=== PATIENT | female | born 1980 | race Caucasian/White ===

== ENCOUNTER 2023-04-26 12:43 | Emergency (ER) | payer MEDICAID ==
[~2023-04-26] VITALS: Ht 172.7 cm; Wt 61.6 kg
[2023-04-26 13:04] VITALS: TEMP 97.4
[2023-04-26 13:48] LABS: BASOPHILS # (AUTO) 0.1 X10'3 (0-0.2); BASOPHILS % (AUTO) 1.6 % (0-1); EOSINOPHILS % (AUTO) 0.6 % (0-6); HEMATOCRIT 39.5 % (35.0-45.0); HEMOGLOBIN 13.3 g/dl (12.0-16.0); LYMPHOCYTES # (AUTO) 1.5 X10'3 (1.1-4.8); LYMPHOCYTES % (AUTO) 37.1 % (21-51); MEAN CORPUSCULAR HEMOGLOBIN 35.9 PG (27.0-31.0); MEAN CORPUSCULAR HGB CONC 33.7 g/dL (33.0-36.5); MEAN CORPUSCULAR VOLUME 106.5 FL (78-98); MEAN PLATELET VOLUME 6.7 FL (7.4-10.4); MONOCYTES # (AUTO) 0.5 X10'3 (0-0.9); MONOCYTES % (AUTO) 11.7 % (2-12); PLATELET COUNT 190 X10'3 (140-440); RED BLOOD COUNT 3.71 X10'6 (4.20-5.60); RED CELL DISTRIBUTION WIDTH 13.5 % (11.5-14.5)
[2023-04-26 14:09] LABS: ALANINE AMINOTRANSFERASE 54 U/L (12-78); ALBUMIN 4.3 G/DL (3.4-5.0); ALBUMIN/GLOBULIN RATIO 1.2 (1.1-1.5); ALKALINE PHOSPHATASE 70 IU/L (46-116); ANION GAP 10 (8-16); ASPARTATE AMINO TRANSFERASE 110 U/L (10-37); BILIRUBIN,TOTAL 0.4 MG/DL (0.1-1.0); BLOOD UREA NITROGEN 6 MG/DL (7-18); BUN/CREATININE RATIO 7.3 (10.0-20.0); CALCIUM 8.7 MG/DL (8.5-10.1); CHLORIDE 102 MMOL/L (99-107); CREATININE 0.82 MG/DL (0.40-0.90); GLUCOSE 96 MG/DL (70-104); LIPASE 358 U/L (73-393); POTASSIUM 3.6 MMOL/L (3.5-5.1); SODIUM 140 MMOL/L (135-145); TOTAL PROTEIN 7.8 G/DL (6.4-8.2); eCRCL 88 ML/MIN; eGFR 77 ML/MIN
[2023-04-26 14:43] LABS: BILIRUBIN,URINE NEGATIVE (Neg); CLARITY,URINE CLEAR (Clear); COLOR,URINE STRAW (Yellow); GLUCOSE, URINE NEGATIVE (Neg); KETONES,URINE NEGATIVE (Neg); LEUKOCYTE ESTERASE ,URINE NEGATIVE (Neg); NITRITES, URINE NEGATIVE (Neg); OCCULT BLOOD,URINE NEGATIVE (Neg); PH,URINE 6.5 (4.8-8.0); PROTEIN,URINE NEGATIVE (Neg); URINE HCG NEGATIVE (NEG); UROBILINOGEN,URINE 0.2 E.U/dL (0.2-1.0)
[2023-04-26 14:44] LABS: UA COLLECTION TYPE CLN CATCH MIDSTREAM
[2023-04-26 16:19] VITALS: BP 125/94; PULSE 72; RESP 18; O2SAT 96
== END 2023-04-26 16:39 | disposition home or self-care (01) ==
LOC: ER 12:44
DX: M54.50 Low back pain, unspecified (principal); Z88.5 Allergy status to narcotic agent; Z72.89 Other problems related to lifestyle
CPT/HCPCS: 36415; 80053; 81003; 81025; 83690; 85025; 99284

== ENCOUNTER 2023-05-07 18:53 | Inpatient (IN) | payer MEDICAID ==
[~2023-05-07] VITALS: Ht 172.7 cm; Wt 56.8 kg
[2023-05-07] MEDS ORDERED: ringers solution, lacted 1,000 ML IV ONE (19:05)
[2023-05-07] MEDS ORDERED: magnesium 2GM in 50ml NS 50 ML IV ONE (19:05)
[2023-05-07] MEDS ORDERED: normal saline 1000ML IV soln IVB ONE (19:05)
[2023-05-07] MEDS ORDERED: NO HOME MEDS (19:06)
[2023-05-07 19:30] LABS: BASOPHILS # (AUTO) 0.1 X10'3 (0-0.2); BASOPHILS % (AUTO) 1.1 % (0-1); EOSINOPHILS % (AUTO) 0.4 % (0-6); HEMATOCRIT 42.2 % (35.0-45.0); HEMOGLOBIN 14.1 g/dl (12.0-16.0); LYMPHOCYTES # (AUTO) 1.7 X10'3 (1.1-4.8); LYMPHOCYTES % (AUTO) 30.1 % (21-51); MEAN CORPUSCULAR HEMOGLOBIN 35.1 PG (27.0-31.0); MEAN CORPUSCULAR HGB CONC 33.4 g/dL (33.0-36.5); MEAN PLATELET VOLUME 7.4 FL (7.4-10.4); MONOCYTES # (AUTO) 0.5 X10'3 (0-0.9); MONOCYTES % (AUTO) 8.5 % (2-12); NEUTROPHILS # (AUTO) 3.3 X10'3 (1.8-7.7); NEUTROPHILS % (AUTO) 59.9 % (42-75); PLATELET COUNT 171 X10'3 (140-440); RED BLOOD COUNT 4.01 X10'6 (4.20-5.60); RED CELL DISTRIBUTION WIDTH 13.2 % (11.5-14.5); WHITE BLOOD COUNT 5.5 X10'3 (4.5-11.0)
[2023-05-07 19:36] LABS: URINE HCG NEGATIVE (NEG)
[2023-05-07 19:40] LABS: BILIRUBIN,URINE NEGATIVE (Neg); CLARITY,URINE SLIGHTLY CLOUDY (Clear); GLUCOSE, URINE 100 mg/dl (Neg); KETONES,URINE TRACE mg/dl (Neg); LEUKOCYTE ESTERASE ,URINE LARGE (Neg); NITRITES, URINE POSITIVE (Neg); OCCULT BLOOD,URINE TRACE-INTACT (Neg); PH,URINE 6.5 (4.8-8.0); PROTEIN,URINE NEGATIVE (Neg)
[2023-05-07 19:45] LABS: ALANINE AMINOTRANSFERASE 43 U/L (12-78); ALBUMIN 4.2 G/DL (3.4-5.0); ALBUMIN/GLOBULIN RATIO 1.1 (1.1-1.5); ALKALINE PHOSPHATASE 73 IU/L (46-116); ANION GAP 12 (8-16); ASPARTATE AMINO TRANSFERASE 94 U/L (10-37); BILIRUBIN,TOTAL 0.8 MG/DL (0.1-1.0); BLOOD UREA NITROGEN 7 MG/DL (7-18); BUN/CREATININE RATIO 9.2 (10.0-20.0); CALCIUM 8.7 MG/DL (8.5-10.1); CHLORIDE 100 MMOL/L (99-107); CREATININE 0.76 MG/DL (0.40-0.90); GLUCOSE 99 MG/DL (70-104); POTASSIUM 3.7 MMOL/L (3.5-5.1); SODIUM 137 MMOL/L (135-145); TOTAL CARBON DIOXIDE 24.8 MMOL/L (24-32); TOTAL PROTEIN 7.9 G/DL (6.4-8.2); eCRCL 87 ML/MIN; eGFR 84 ML/MIN
[2023-05-07 19:45] LABS: COLOR,URINE AMBER (Yellow); UA COLLECTION TYPE CLN CATCH MIDSTREAM
[2023-05-07 19:49] LABS: BACTERIA,URINE 4+ /HPF (Neg); MUCUS STRANDS FEW /LPF (Neg); SQUAMOUS EPITHELIAL CELL,UR FEW /LPF (FEW); TRANSITIONAL EPI CELLS,URINE FEW /HPF; WBC,URINE 20-30 /HPF (0-4)
[2023-05-07 19:55] LABS: CKMB RELATIVE INDEX 0.4 RATIO (0-2.5); CREATINE KINASE 166 U/L (26-192); CREATINE KINASE MB 0.7 ng/ml (0.3-3.6); ETHANOL 266 MG/DL (<10); LIPASE 251 U/L (73-393)
[2023-05-07 19:57] LABS: URINE AMPHETAMINE SCREEN NEGATIVE (Neg); URINE BARBITUATE SCREEN NEGATIVE (Neg); URINE BENZODIAZEPINES SCREEN NEGATIVE (Neg); URINE CANNABINOID SCREEN NEGATIVE (Neg); URINE COCAINE SCREEN NEGATIVE (Neg); URINE METHADONE SCREEN NEGATIVE (Neg); URINE OPIATE SCREEN NEGATIVE (Neg); URINE PHENCYCLIDINE SCREEN NEGATIVE (Neg)
[2023-05-07] MEDS ORDERED: CefTRIAXone/D5W-Rocephin 1gm 50 ML IV ONE (20:10)
[2023-05-07] MEDS ORDERED: CefTRIAXone 2gm/D5W 50ml BAG 50 ML IV ONE (22:00)
--- NOTE | 2023-05-07 22:17 | NUR ---
per dr gallegos, 2gm rocephin was ordered in error and only give 1gm rocephin. 1gm given.
[2023-05-07] MEDS ORDERED: haloperidol 5mg tablet PO PRN (22:20)
[2023-05-07] MEDS ORDERED: magnesium 2GM in 50ml NS 50 ML IV PRN (22:20)
[2023-05-07] MEDS ORDERED: ondansetron/PF 4mg/2ml inj IV PRN (22:20)
[2023-05-07] MEDS ORDERED: haloperidol lactate 5mg/ml inj IM PRN (22:20)
[2023-05-07] MEDS ORDERED: mag hydrox/Alum hydrox/simeth 30ml oral suspension PO PRN (22:20)
[2023-05-07] MEDS ORDERED: magnesium 4gm in 100ml NS 100 ML IV PRN (22:20)
[2023-05-07] MEDS ORDERED: potassium Cl 20 mEq SR tablet PO PRN (22:20)
[2023-05-07] MEDS ORDERED: acetaminophen 325mg tablet PO PRN ×2 (22:20)
[2023-05-07] MEDS: normal saline 1000ml 1,000 ML IV SCH (22:20)
[2023-05-07] MEDS ORDERED: magnesium Cl slow-release 64mg tablet PO PRN (22:20)
[2023-05-07] MEDS ORDERED: potassium Cl 40MEQ/1/2NS 520ml 520 ML IV PRN (22:20)
--- NOTE | 2023-05-07 22:30 | NUR ---
Patient in room [facility] 4014. I have received report from BILLIE Waller RN and had the opportunity to ask questions and assume patient care.
--- NOTE | 2023-05-07 22:45 | NUR ---
pt brought up to room 4014B via wheelchair, accompanied by and friend. oriented pt to room and call light with verbal understanding.
[2023-05-07 23:00] VITALS: BP 127/90; PULSE 105; RESP 16; TEMP 97.8; O2SAT 96
[2023-05-07] MEDS ORDERED: traMADol 50MG tablet PO PRN (23:50)
[2023-05-07] MEDS: LORazepam 1 MG tablet PO PRN (23:59)
[2023-05-08] MEDS: ciprofloxacin lact 400MG/200ML 200 ML IV SCH ×3 (01:09→18:58)
[2023-05-08] MEDS: LORazepam 1 MG tablet PO PRN ×2 (04:14→06:10)
[2023-05-08 06:30] LABS: EOSINOPHILS % (AUTO) 0.7 % (0-6); HEMATOCRIT 37.8 % (35.0-45.0); HEMOGLOBIN 12.8 g/dl (12.0-16.0); LYMPHOCYTES # (AUTO) 1.6 X10'3 (1.1-4.8); LYMPHOCYTES % (AUTO) 32.5 % (21-51); MEAN CORPUSCULAR HEMOGLOBIN 35.7 PG (27.0-31.0); MEAN CORPUSCULAR HGB CONC 33.9 g/dL (33.0-36.5); MEAN CORPUSCULAR VOLUME 105.3 FL (78-98); MEAN PLATELET VOLUME 7.4 FL (7.4-10.4); MONOCYTES # (AUTO) 0.5 X10'3 (0-0.9); MONOCYTES % (AUTO) 9.8 % (2-12); NEUTROPHILS # (AUTO) 2.8 X10'3 (1.8-7.7); PLATELET COUNT 133 X10'3 (140-440); RED BLOOD COUNT 3.59 X10'6 (4.20-5.60); RED CELL DISTRIBUTION WIDTH 12.9 % (11.5-14.5)
--- NOTE | 2023-05-08 06:31 | NUR ---
Problems reprioritized. Patient report given, questions answered & plan of care reviewed with MINA Mehta.
[2023-05-08 06:45] LABS: ALANINE AMINOTRANSFERASE 38 U/L (12-78); ALBUMIN 3.5 G/DL (3.4-5.0); ALKALINE PHOSPHATASE 65 IU/L (46-116); ANION GAP 7 (8-16); ASPARTATE AMINO TRANSFERASE 86 U/L (10-37); BILIRUBIN,TOTAL 0.8 MG/DL (0.1-1.0); BLOOD UREA NITROGEN 5 MG/DL (7-18); BUN/CREATININE RATIO 6.8 (10.0-20.0); CALCIUM 7.9 MG/DL (8.5-10.1); CHLORIDE 103 MMOL/L (99-107); CREATININE 0.73 MG/DL (0.40-0.90); GLUCOSE 104 MG/DL (70-104); LIPASE 368 U/L (73-393); MAGNESIUM 2.1 MG/DL (1.5-2.4); PHOSPHORUS 2.9 MG/DL (2.3-4.5); POTASSIUM 3.4 MMOL/L (3.5-5.1); SODIUM 138 MMOL/L (135-145); TOTAL CARBON DIOXIDE 27.8 MMOL/L (24-32); TOTAL PROTEIN 6.9 G/DL (6.4-8.2); eCRCL 91 ML/MIN; eGFR 88 ML/MIN
--- NOTE | 2023-05-08 06:54 | NUR ---
PAGER ID: [phone] MESSAGE: Janine Montaño [phone] Re: Mariah [phone] please call re withdrawls Thank YOu
[2023-05-08 06:55] VITALS: BP 115/71; PULSE 100; RESP 24; O2SAT 98
[2023-05-08 09:30] VITALS: RESP 16
[2023-05-08] MEDS: nicotine 14mg patch - 24hr TD SCH (09:58)
[2023-05-08] MEDS: thiamine 100mg/ml 2ml inj. IV SCH ×3 (09:58→20:51)
[2023-05-08] MEDS: folic acid 1mg/0.2ml inj IV SCH (09:59)
[2023-05-08] MEDS: LORazepam 2 mg/ml vial IV PRN ×5 (09:59→21:12)
[2023-05-08 10:00] VITALS: BP 121/73; PULSE 90; RESP 18; TEMP 97.5; O2SAT 97
--- NOTE | 2023-05-08 12:20 | NUR ---
L/w for substance abuse navigator to come and see patient on voicemail.
--- NOTE | 2023-05-08 13:19 | NUR ---
Received order for consult. Met with patient in regards to alcohol use and to see if patient was interested in resources for treatment options. Patient is interested in both in and out patient services. I talked to patient about Naltrexone and she has some at home that she has not tried yet. I discussed with patient the importance of getting a sponsor. I gave patient a list of facilities for inpatient and outpatient rehab, a card for [facility] and my card to call me with any questions.
--- NOTE | 2023-05-08 15:23 | NUR ---
Malnutrition consult: Pt reports 35 lb wt loss per consult. Attempted visit with pt at bedside though pt sleeping per family. RN also confirmed that pt had been sleeping. Current wt is 56.82 kg though not scaled and pt recently in ED with a scaled wt of 61.6 kg 04/26, current wt likely not accurate. Most recent scaled wt hx in EMR is 55 kg 03/18/11. Per ED report pt appears well developed well nourished. Per verbal d/w RN pt with no visible signs of muscle or fat wasting. Pending documentation of PO intake on clear liquid diet though RN confirmed pt ate gelatin and broth. Pt with no documented edema. Pt currently lacks a minimum of two criteria for malnutrition though at a high risk d/t EtOH use. Pt receiving routine Thiamine and Folic acid. D/w RN recommendation for routine MVI as well. Will continue to follow and monitor s/s of malnutrition. Addendum: 05/08/23 at [address] Amended: Links added.
[2023-05-08] MEDS: normal saline 1000ml 1,000 ML IV SCH (15:59)
[2023-05-08] MEDS: potassium Cl 20 mEq SR tablet PO PRN ×2 (17:28→22:46)
[2023-05-08 18:00] VITALS: BP 118/83; PULSE 103; RESP 16; TEMP 98.1; O2SAT 96
--- NOTE | 2023-05-08 19:03 | NUR ---
Problems reprioritized. Patient report given, questions answered & plan of care reviewed with Shukri OROZCO.
[2023-05-08] MEDS ORDERED: enoxaparin 40mg/0.4ml syringe SQ SCH (20:00)
[2023-05-09] MEDS: normal saline 1000ml 1,000 ML IV SCH (02:56)
[2023-05-09] MEDS: LORazepam 2 mg/ml vial IV PRN (02:59)
[2023-05-09] MEDS: potassium Cl 20 mEq SR tablet PO PRN (02:59)
--- NOTE | 2023-05-09 05:45 | NUR ---
I agree with PNEUMATIC TUBE REPAIRER physical assessment
[2023-05-09 06:00] VITALS: BP 122/93; PULSE 98; RESP 17; TEMP 98.3; O2SAT 96
--- NOTE | 2023-05-09 06:13 | NUR ---
I have received report from ERNESTO Forbes and had the opportunity to ask questions and assume patient care. No distress at this time.
--- NOTE | 2023-05-09 06:42 | NUR ---
Problems reprioritized. Patient report given, questions answered & plan of care reviewed with Lacy OROZCO.
[2023-05-09] MEDS: nicotine 14mg patch - 24hr TD SCH (07:48)
[2023-05-09] MEDS: LORazepam 1 MG tablet PO PRN (07:49)
[2023-05-09 08:00] VITALS: RESP 16; O2SAT 97
[2023-05-09] MEDS ORDERED: multivitamins, therapeutics tablet PO SCH (08:00)
[2023-05-09 08:13] LABS: BASOPHILS # (AUTO) 0.1 X10'3 (0-0.2); EOSINOPHILS # (AUTO) 0.1 X10'3 (0-0.9); HEMATOCRIT 36.3 % (35.0-45.0); HEMOGLOBIN 12.1 g/dl (12.0-16.0); LYMPHOCYTES # (AUTO) 1.3 X10'3 (1.1-4.8); LYMPHOCYTES % (AUTO) 23.7 % (21-51); MEAN CORPUSCULAR HEMOGLOBIN 35.6 PG (27.0-31.0); MEAN CORPUSCULAR HGB CONC 33.3 g/dL (33.0-36.5); MEAN CORPUSCULAR VOLUME 106.8 FL (78-98); MEAN PLATELET VOLUME 8.2 FL (7.4-10.4); MONOCYTES # (AUTO) 0.5 X10'3 (0-0.9); MONOCYTES % (AUTO) 9.8 % (2-12); NEUTROPHILS # (AUTO) 3.4 X10'3 (1.8-7.7); NEUTROPHILS % (AUTO) 63.5 % (42-75); PLATELET COUNT 121 X10'3 (140-440); RED CELL DISTRIBUTION WIDTH 13.1 % (11.5-14.5); WHITE BLOOD COUNT 5.3 X10'3 (4.5-11.0)
[2023-05-09] MEDS: folic acid 1mg/0.2ml inj IV SCH (08:44)
[2023-05-09] MEDS: ciprofloxacin lact 400MG/200ML 200 ML IV SCH (08:44)
[2023-05-09] MEDS: thiamine 100mg/ml 2ml inj. IV SCH ×2 (08:44→13:12)
[2023-05-09 08:49] LABS: ALANINE AMINOTRANSFERASE 35 U/L (12-78); ALBUMIN 3.4 G/DL (3.4-5.0); ALBUMIN/GLOBULIN RATIO 1.1 (1.1-1.5); ALKALINE PHOSPHATASE 62 IU/L (46-116); ANION GAP 7 (8-16); ASPARTATE AMINO TRANSFERASE 57 U/L (10-37); BILIRUBIN,TOTAL 1.3 MG/DL (0.1-1.0); BLOOD UREA NITROGEN 3 MG/DL (7-18); BUN/CREATININE RATIO 4.4 (10.0-20.0); CALCIUM 8.3 MG/DL (8.5-10.1); CHLORIDE 104 MMOL/L (99-107); CREATININE 0.68 MG/DL (0.40-0.90); GLUCOSE 101 MG/DL (70-104); LIPASE 309 U/L (73-393); PHOSPHORUS 2.6 MG/DL (2.3-4.5); POTASSIUM 3.8 MMOL/L (3.5-5.1); SODIUM 136 MMOL/L (135-145); TOTAL CARBON DIOXIDE 24.8 MMOL/L (24-32); TOTAL PROTEIN 6.5 G/DL (6.4-8.2); eCRCL 98 ML/MIN; eGFR > 90 ML/MIN
[2023-05-09 10:00] VITALS: BP 114/74; PULSE 83; RESP 19; TEMP 97.6; O2SAT 97
[2023-05-09] MEDS ORDERED: NALT50TA PO (12:44)
[2023-05-09] MEDS ORDERED: NICO-631 TD (12:44)
[2023-05-09] MEDS ORDERED: FOLI1TAB27 PO (12:44)
[2023-05-09] MEDS ORDERED: THIA100T66 PO (12:44)
[2023-05-09] MEDS ORDERED: LORA-269 PO (12:44)
[2023-05-09] MEDS ORDERED: MULT-25 PO (12:44)
[2023-05-09] MEDS ORDERED: LEVO-65 PO (12:44)
--- NOTE | 2023-05-09 13:39 | NUR ---
Patient discharged w/ no distress. All paperwork signed and instructions went over w/ patient. IV taken out from the right arm: cannula intact. Accompanied by her spouse for transportation and educational handouts to quite smoking/ drinking given to pt.
--- NOTE | 2023-05-09 14:29 | NUR ---
INDUSTRIAL REFRIGERATION MECHANIC documentation: I have reviewed and agree with all interventions, assessments performed and documented by Lacy Gardner LVN .
== END 2023-05-09 13:30 | disposition home or self-care (01) | DRG 463 ==
LOC: ER 18:54 → ED HOLD 22:25 → EDBEDREQ 23:23 → ORTHO 4S 23:50
PROVIDERS: ADMIT Internal Medicine; ATTEND Family Medicine
DX: N12 Tubulo-interstitial nephritis, not specified as acute or chronic (principal); K76.0 Fatty (change of) liver, not elsewhere classified; B96.89 Other specified bacterial agents as the cause of diseases classified elsewhere; E87.6 Hypokalemia; F10.229 Alcohol dependence with intoxication, unspecified; F17.290 Nicotine dependence, other tobacco product, uncomplicated; F10.239 Alcohol dependence with withdrawal, unspecified; Y90.8 Blood alcohol level of 240 mg/100 ml or more; Z88.5 Allergy status to narcotic agent
CPT/HCPCS: 36415; 76700; 76856; 80053; 80305; 80320; 81001; 81025; 82550; 82553; 82948; 83690; 83735; 83874; 84100; 85025; 87040; 87077; 87081; 87088; 87186; 93005; 93976; 96365; 96367; 99285; G0378; J0696; J0744; J2060; J2405; J3411; J3475; J3490; J7030; J7120

== ENCOUNTER 2023-08-14 18:32 | Emergency (ER) | payer MEDICAID ==
[~2023-08-14] VITALS: Ht 175.3 cm; Wt 59.1 kg
[~2023-08-14 18:32] MED LIST: FOLI1TAB27 PO; LORA-269 PO; MULT-25 PO; NALT50TA PO; NICO-631 TD; THIA100T66 PO
[2023-08-14] MEDS ORDERED: ketorolac tromethamine 15mg/ml inj. IV ONE (19:50)
[2023-08-14 20:11] LABS: URINE HCG NEGATIVE (NEG)
[2023-08-14 20:16] LABS: BILIRUBIN,URINE NEGATIVE (Neg); CLARITY,URINE CLOUDY (Clear); COLOR,URINE STRAW (Yellow); GLUCOSE, URINE NEGATIVE (Neg); KETONES,URINE NEGATIVE (Neg); LEUKOCYTE ESTERASE ,URINE SMALL (Neg); NITRITES, URINE NEGATIVE (Neg); OCCULT BLOOD,URINE NEGATIVE (Neg); PH,URINE 6.5 (4.8-8.0); PROTEIN,URINE NEGATIVE (Neg); UROBILINOGEN,URINE 0.2 E.U/dL (0.2-1.0)
[2023-08-14] MEDS ORDERED: ondansetron/PF 4mg/2ml inj IV ONE (20:20)
[2023-08-14 20:30] LABS: UA COLLECTION TYPE CLN CATCH MIDSTREAM
[2023-08-14 20:31] LABS: ALANINE AMINOTRANSFERASE 34 U/L (12-78); ALBUMIN 4.2 G/DL (3.4-5.0); ALBUMIN/GLOBULIN RATIO 1.1 (1.1-1.5); ALKALINE PHOSPHATASE 70 IU/L (46-116); ANION GAP 10 (8-16); ASPARTATE AMINO TRANSFERASE 71 U/L (10-37); BILIRUBIN,TOTAL 0.9 MG/DL (0.1-1.0); BLOOD UREA NITROGEN 7 MG/DL (7-18); BUN/CREATININE RATIO 10.9 (10.0-20.0); CALCIUM 8.7 MG/DL (8.5-10.1); CHLORIDE 100 MMOL/L (99-107); CREATININE 0.64 MG/DL (0.40-0.90); GLUCOSE 93 MG/DL (70-104); LIPASE 85 U/L (16-77); POTASSIUM 3.9 MMOL/L (3.5-5.1); SODIUM 135 MMOL/L (135-145); TOTAL CARBON DIOXIDE 25.1 MMOL/L (24-32); eCRCL 108 ML/MIN; eGFR > 90 ML/MIN
[2023-08-14 20:31] LABS: BACTERIA,URINE 4+ /HPF (Neg); MUCUS STRANDS NONE SEEN /LPF (Neg); SQUAMOUS EPITHELIAL CELL,UR MANY /LPF (FEW)
[2023-08-14 20:32] LABS: BASOPHILS # (AUTO) 0.1 X10'3 (0-0.2); BASOPHILS % (AUTO) 1.4 % (0-1); EOSINOPHILS % (AUTO) 0.1 % (0-6); HEMATOCRIT 40.7 % (35.0-45.0); HEMOGLOBIN 13.6 g/dl (12.0-16.0); LYMPHOCYTES # (AUTO) 1.5 X10'3 (1.1-4.8); LYMPHOCYTES % (AUTO) 33.6 % (21-51); MEAN CORPUSCULAR HEMOGLOBIN 34.1 PG (27.0-31.0); MEAN CORPUSCULAR HGB CONC 33.5 g/dL (33.0-36.5); MEAN CORPUSCULAR VOLUME 101.8 FL (78-98); MONOCYTES # (AUTO) 0.5 X10'3 (0-0.9); NEUTROPHILS # (AUTO) 2.5 X10'3 (1.8-7.7); NEUTROPHILS % (AUTO) 54.9 % (42-75); PLATELET COUNT 251 X10'3 (140-440); RED CELL DISTRIBUTION WIDTH 13.7 % (11.5-14.5); WHITE BLOOD COUNT 4.6 X10'3 (4.5-11.0)
[2023-08-14 20:33] LABS: RBC,URINE 0-2 /HPF (0-2); TRANSITIONAL EPI CELLS,URINE FEW /HPF
[2023-08-14] MEDS ORDERED: iohexol 300mg/ml 100ml inj. ONE (20:41)
[2023-08-14] MEDS ORDERED: normal saline 1000ml 1,000 ML IV ONE (20:50)
[2023-08-14] MEDS ORDERED: CefTRIAXone 2gm/D5W 50ml BAG 50 ML IV ONE (22:15)
[2023-08-14 22:51] LABS: BILIRUBIN,URINE NEGATIVE (Neg); CLARITY,URINE SLIGHTLY CLOUDY (Clear); COLOR,URINE STRAW (Yellow); GLUCOSE, URINE NEGATIVE (Neg); KETONES,URINE NEGATIVE (Neg); LEUKOCYTE ESTERASE ,URINE NEGATIVE (Neg); NITRITES, URINE NEGATIVE (Neg); OCCULT BLOOD,URINE NEGATIVE (Neg); PROTEIN,URINE NEGATIVE (Neg); UROBILINOGEN,URINE 0.2 E.U/dL (0.2-1.0)
[2023-08-14 22:59] LABS: SQUAMOUS EPITHELIAL CELL,UR MODERATE /LPF (FEW); UA COLLECTION TYPE CLN CATCH MIDSTREAM
[2023-08-14 23:01] LABS: BACTERIA,URINE 2+ /HPF (Neg); RBC,URINE NONE SEEN /HPF (0-2); WBC,URINE 0-4 /HPF (0-4)
[2023-08-14] MEDS ORDERED: CEPH250T PO (23:06)
[2023-08-14] MEDS ORDERED: HYDROcodone/acetaminophen 5mg/325mg tablet PO ONE (23:15)
[2023-08-15 00:52] VITALS: BP 96/60; PULSE 80; RESP 16; TEMP 98.7; O2SAT 99
== END 2023-08-15 00:54 | disposition home or self-care (01) ==
LOC: ER 18:32
DX: K85.90 Acute pancreatitis without necrosis or infection, unspecified (principal); R11.2 Nausea with vomiting, unspecified; R19.7 Diarrhea, unspecified; R50.9 Fever, unspecified; N30.90 Cystitis, unspecified without hematuria; Z72.89 Other problems related to lifestyle; Z88.5 Allergy status to narcotic agent; Z79.2 Long term (current) use of antibiotics; Z79.899 Other long term (current) drug therapy
CPT/HCPCS: 36415; 74177; 80053; 81001; 81025; 83690; 85025; 96361; 96365; 96375; 99285; J0696; J1885; J2405; J3490; J7030; Q9967

== ENCOUNTER 2023-08-16 13:13 | Inpatient (IN) | payer MEDICAID ==
[~2023-08-16] VITALS: Ht 170.2 cm; Wt 59.0 kg
[~2023-08-16 13:13] MED LIST changes: +CEPH250T PO
[2023-08-16 13:52] LABS: HEMOGLOBIN 12.7 g/dl (12.0-16.0); WHITE BLOOD COUNT 2.8 X10'3 (4.5-11.0)
[2023-08-16 13:54] LABS: MEAN CORPUSCULAR HEMOGLOBIN 34.2 PG (27.0-31.0); MEAN CORPUSCULAR HGB CONC 33.5 g/dL (33.0-36.5); MEAN PLATELET VOLUME 7.3 FL (7.4-10.4); PLATELET COUNT 193 X10'3 (140-440); RED BLOOD COUNT 3.72 X10'6 (4.20-5.60); RED CELL DISTRIBUTION WIDTH 13.7 % (11.5-14.5)
[2023-08-16] MEDS ORDERED: LORazepam 2 mg/ml vial IV ONE (13:55)
[2023-08-16] MEDS ORDERED: ondansetron/PF 4mg/2ml inj IV ONE (13:55)
[2023-08-16] MEDS ORDERED: normal saline 1000ML IV soln IVB ONE (13:55)
[2023-08-16 14:06] LABS: ALANINE AMINOTRANSFERASE 32 U/L (12-78); ALBUMIN 3.9 G/DL (3.4-5.0); ALBUMIN/GLOBULIN RATIO 1.1 (1.1-1.5); ALKALINE PHOSPHATASE 63 IU/L (46-116); ANION GAP 14 (8-16); ASPARTATE AMINO TRANSFERASE 60 U/L (10-37); BILIRUBIN,TOTAL 1.5 MG/DL (0.1-1.0); BLOOD UREA NITROGEN 7 MG/DL (7-18); BUN/CREATININE RATIO 11.1 (10.0-20.0); CALCIUM 8.6 MG/DL (8.5-10.1); CHLORIDE 100 MMOL/L (99-107); CREATININE 0.63 MG/DL (0.40-0.90); GLUCOSE 82 MG/DL (70-104); LIPASE 80 U/L (16-77); POTASSIUM 3.4 MMOL/L (3.5-5.1); SODIUM 135 MMOL/L (135-145); TOTAL CARBON DIOXIDE 21.1 MMOL/L (24-32); TOTAL PROTEIN 7.5 G/DL (6.4-8.2); eCRCL 109 ML/MIN; eGFR > 90 ML/MIN
[2023-08-16 14:28] LABS: PLATELET ESTIMATE NORMAL; TOTAL CELLS COUNTED 100
[2023-08-16 14:53] LABS: URINE HCG NEGATIVE (NEG)
[2023-08-16 14:54] LABS: BILIRUBIN,URINE SMALL (Neg); CLARITY,URINE CLEAR (Clear); COLOR,URINE YELLOW (Yellow); GLUCOSE, URINE NEGATIVE (Neg); KETONES,URINE >=80 mg/dl (Neg); LEUKOCYTE ESTERASE ,URINE TRACE (Neg); NITRITES, URINE NEGATIVE (Neg); OCCULT BLOOD,URINE TRACE-INTACT (Neg); PH,URINE 5.5 (4.8-8.0); PROTEIN,URINE 30 mg/dl (Neg); UROBILINOGEN,URINE 0.2 E.U/dL (0.2-1.0)
[2023-08-16 15:09] LABS: UA COLLECTION TYPE CLN CATCH MIDSTREAM
[2023-08-16 15:11] LABS: BACTERIA,URINE FEW /HPF (Neg); MUCUS STRANDS FEW /LPF (Neg); RBC,URINE 0-2 /HPF (0-2); SQUAMOUS EPITHELIAL CELL,UR MANY /LPF (FEW)
[2023-08-16 15:14] LABS: ETHANOL < 10 MG/DL (<10); MAGNESIUM 1.6 MG/DL (1.5-2.4)
[2023-08-16] MEDS ORDERED: potassium Cl 20 mEq SR tablet PO PRN (16:45)
[2023-08-16] MEDS ORDERED: acetaminophen 325mg tablet PO PRN ×2 (16:45)
[2023-08-16] MEDS ORDERED: magnesium Cl slow-release 64mg tablet PO PRN (16:45)
[2023-08-16] MEDS ORDERED: magnesium 4gm in 100ml NS 100 ML IV PRN (16:45)
[2023-08-16] MEDS ORDERED: mag hydrox/Alum hydrox/simeth 30ml oral suspension PO PRN (16:45)
[2023-08-16] MEDS ORDERED: ondansetron 4mg rapidly disintigrating tab PO PRN (16:45)
[2023-08-16] MEDS ORDERED: magnesium hydroxide 30ml (MOM) UD suspension PO PRN (16:45)
[2023-08-16] MEDS ORDERED: magnesium 2GM in 50ml NS 50 ML IV PRN (16:45)
[2023-08-16] MEDS ORDERED: bisacodyl 10mg suppository rectal RC PRN (16:45)
[2023-08-16] MEDS ORDERED: haloperidol lactate 5mg/ml inj IM PRN (16:45)
[2023-08-16] MEDS ORDERED: ondansetron/PF 4mg/2ml inj IV PRN (16:45)
[2023-08-16] MEDS ORDERED: potassium Cl 40MEQ/1/2NS 520ml 520 ML IV PRN (16:45)
[2023-08-16] MEDS ORDERED: dextrose 50%-water 50ml dispensing syringe IV PRN (16:45)
[2023-08-16] MEDS ORDERED: haloperidol 5mg tablet PO PRN (16:45)
[2023-08-16] MEDS ORDERED: diphenhydrAMINE 25mg capsule PO PRN (16:45)
[2023-08-16] MEDS: CefTRIAXone/D5W-Rocephin 1gm 50 ML IV SCH (17:37)
[2023-08-16] MEDS: folic acid 1mg/0.2ml inj IV SCH (17:42)
[2023-08-16 17:43] LABS: HEMOGLOBIN A1C 4.9 % (4.5-6.2)
[2023-08-16 18:33] LABS: URINE AMPHETAMINE SCREEN NEGATIVE (Neg); URINE BARBITUATE SCREEN NEGATIVE (Neg); URINE BENZODIAZEPINES SCREEN NEGATIVE (Neg); URINE CANNABINOID SCREEN NEGATIVE (Neg); URINE COCAINE SCREEN NEGATIVE (Neg); URINE METHADONE SCREEN NEGATIVE (Neg); URINE OPIATE SCREEN NEGATIVE (Neg); URINE PHENCYCLIDINE SCREEN NEGATIVE (Neg)
[2023-08-16] MEDS: LORazepam 2 mg/ml vial IV PRN ×3 (18:54→23:45)
[2023-08-16] MEDS: dextrose 5%-normal saline 1,000 ML IV SCH (19:00)
[2023-08-16] MEDS: docusate sod 100mg capsule PO SCH (19:56)
[2023-08-16] MEDS: heparin, porcine 5000 units/ml vial SQ SCH (20:03)
[2023-08-16] MEDS: K and/or MAG REPLACEMENT MC SCH (20:27)
[2023-08-16] MEDS: thiamine 100mg/ml 2ml inj. IV SCH (21:32)
[2023-08-16 22:50] VITALS: BP 119/84; PULSE 84; RESP 16; TEMP 98.5; O2SAT 100
[2023-08-17] MEDS: dextrose 5%-normal saline 1,000 ML IV SCH ×3 (00:45→15:18)
[2023-08-17 06:00] VITALS: BP 95/63; PULSE 75; RESP 16; TEMP 98.1; O2SAT 100
[2023-08-17 06:09] LABS: BASOPHILS # (AUTO) 0.1 X10'3 (0-0.2); BASOPHILS % (AUTO) 1.7 % (0-1); EOSINOPHILS # (AUTO) 0.1 X10'3 (0-0.9); EOSINOPHILS % (AUTO) 1.8 % (0-6); HEMATOCRIT 35.9 % (35.0-45.0); HEMOGLOBIN 11.9 g/dl (12.0-16.0); LYMPHOCYTES # (AUTO) 1.5 X10'3 (1.1-4.8); LYMPHOCYTES % (AUTO) 47.4 % (21-51); MEAN CORPUSCULAR HEMOGLOBIN 34.3 PG (27.0-31.0); MEAN CORPUSCULAR HGB CONC 33.2 g/dL (33.0-36.5); MEAN CORPUSCULAR VOLUME 103.2 FL (78-98); MEAN PLATELET VOLUME 7.6 FL (7.4-10.4); MONOCYTES # (AUTO) 0.3 X10'3 (0-0.9); MONOCYTES % (AUTO) 11.3 % (2-12); NEUTROPHILS # (AUTO) 1.2 X10'3 (1.8-7.7); NEUTROPHILS % (AUTO) 37.8 % (42-75); PLATELET COUNT 180 X10'3 (140-440); RED BLOOD COUNT 3.48 X10'6 (4.20-5.60); RED CELL DISTRIBUTION WIDTH 13.4 % (11.5-14.5); WHITE BLOOD COUNT 3.1 X10'3 (4.5-11.0)
[2023-08-17 06:23] LABS: INR 1.1 INR; PROTHROMBIN TIME 11.4 SECONDS (9.0-12.0)
[2023-08-17 06:39] LABS: ALANINE AMINOTRANSFERASE 24 U/L (12-78); ALBUMIN 3.3 G/DL (3.4-5.0); ALKALINE PHOSPHATASE 53 IU/L (46-116); ANION GAP 9 (8-16); ASPARTATE AMINO TRANSFERASE 46 U/L (10-37); BLOOD UREA NITROGEN 3 MG/DL (7-18); BUN/CREATININE RATIO 5.2 (10.0-20.0); CALCIUM 7.8 MG/DL (8.5-10.1); CHLORIDE 105 MMOL/L (99-107); CHOL/HDL RATIO 2.1 (0.00-4.99); CHOLESTEROL 210 MG/DL (0-200); CREATININE 0.58 MG/DL (0.40-0.90); GLUCOSE 81 MG/DL (70-104); HDL CHOLESTEROL 101 MG/DL (35-60); LDL CHOLESTEROL 86 MG/DL (50-100); LIPASE 84 U/L (16-77); MAGNESIUM 1.7 MG/DL (1.5-2.4); PHOSPHORUS 2.5 MG/DL (2.3-4.5); POTASSIUM 3.7 MMOL/L (3.5-5.1); SODIUM 139 MMOL/L (135-145); TOTAL CARBON DIOXIDE 25.2 MMOL/L (24-32); TOTAL PROTEIN 6.6 G/DL (6.4-8.2); TRIGLYCERIDES 76 MG/DL (20-135); eCRCL 119 ML/MIN; eGFR > 90 ML/MIN
[2023-08-17 10:00] VITALS: BP 118/83; PULSE 87; RESP 16; TEMP 98.3; O2SAT 97
[2023-08-17] MEDS: LORazepam 2 mg/ml vial IV PRN ×3 (10:27→22:39)
[2023-08-17] MEDS: naltrexone 50mg tablet PO SCH (10:35)
[2023-08-17] MEDS: docusate sod 100mg capsule PO SCH ×2 (10:35→20:28)
[2023-08-17] MEDS: thiamine 100mg/ml 2ml inj. IV SCH ×3 (10:35→20:26)
[2023-08-17] MEDS: nicotine 14mg patch - 24hr TD SCH (10:36)
[2023-08-17] MEDS: CefTRIAXone/D5W-Rocephin 1gm 50 ML IV SCH (10:40)
[2023-08-17] MEDS: heparin, porcine 5000 units/ml vial SQ SCH ×2 (10:46→20:27)
[2023-08-17] MEDS: K and/or MAG REPLACEMENT MC SCH ×2 (11:08→20:00)
[2023-08-17] MEDS: folic acid 1mg/0.2ml inj IV SCH (15:18)
[2023-08-17 18:30] VITALS: BP 107/80; PULSE 70; RESP 16; TEMP 97.8; O2SAT 99
[2023-08-17 19:00] VITALS: RESP 16; TEMP 97.8; O2SAT 99
[2023-08-17 22:00] VITALS: BP 123/85; PULSE 103; RESP 16; TEMP 97.9; O2SAT 100
[2023-08-17] MEDS ORDERED: traMADol 50MG tablet PO PRN (23:15)
[2023-08-18] MEDS: LORazepam 2 mg/ml vial IV PRN ×4 (01:20→13:43)
[2023-08-18] MEDS: dextrose 5%-normal saline 1,000 ML IV SCH ×2 (01:20→01:31)
[2023-08-18 05:59] LABS: BASOPHILS % (AUTO) 0.5 % (0-1); EOSINOPHILS % (AUTO) 0.4 % (0-6); HEMATOCRIT 35.3 % (35.0-45.0); HEMOGLOBIN 11.9 g/dl (12.0-16.0); LYMPHOCYTES % (AUTO) 11.6 % (21-51); MEAN CORPUSCULAR HEMOGLOBIN 34.3 PG (27.0-31.0); MEAN CORPUSCULAR HGB CONC 33.7 g/dL (33.0-36.5); MEAN CORPUSCULAR VOLUME 101.8 FL (78-98); MEAN PLATELET VOLUME 7.5 FL (7.4-10.4); MONOCYTES # (AUTO) 0.5 X10'3 (0-0.9); MONOCYTES % (AUTO) 5.5 % (2-12); NEUTROPHILS # (AUTO) 7.3 X10'3 (1.8-7.7); PLATELET COUNT 192 X10'3 (140-440); RED BLOOD COUNT 3.47 X10'6 (4.20-5.60); RED CELL DISTRIBUTION WIDTH 13.2 % (11.5-14.5); WHITE BLOOD COUNT 8.8 X10'3 (4.5-11.0)
[2023-08-18 06:05] LABS: PROTHROMBIN TIME 11.2 SECONDS (9.0-12.0)
[2023-08-18 06:15] LABS: ALANINE AMINOTRANSFERASE 28 U/L (12-78); ALBUMIN 3.4 G/DL (3.4-5.0); ALKALINE PHOSPHATASE 50 IU/L (46-116); ANION GAP 8 (8-16); ASPARTATE AMINO TRANSFERASE 41 U/L (10-37); BILIRUBIN,TOTAL 0.6 MG/DL (0.1-1.0); BLOOD UREA NITROGEN 0 MG/DL (7-18); CALCIUM 8.2 MG/DL (8.5-10.1); CHLORIDE 104 MMOL/L (99-107); CREATININE 0.69 MG/DL (0.40-0.90); GLUCOSE 125 MG/DL (70-104); LIPASE 48 U/L (16-77); MAGNESIUM 1.6 MG/DL (1.5-2.4); PHOSPHORUS 2.1 MG/DL (2.3-4.5); SODIUM 140 MMOL/L (135-145); TOTAL CARBON DIOXIDE 28.3 MMOL/L (24-32); TOTAL PROTEIN 6.8 G/DL (6.4-8.2); eCRCL 100 ML/MIN; eGFR > 90 ML/MIN
[2023-08-18 06:37] LABS: POTASSIUM 2.9 MMOL/L (3.5-5.1)
[2023-08-18 07:14] VITALS: BP 117/78; PULSE 110; RESP 15; TEMP 99.1; O2SAT 98
[2023-08-18] MEDS: K and/or MAG REPLACEMENT MC SCH (08:00)
[2023-08-18] MEDS: potassium Cl 20 mEq SR tablet PO PRN ×2 (08:02→11:56)
[2023-08-18] MEDS ORDERED: potassium Cl 20 mEq SR tablet PO PRN ×2 (08:45)
[2023-08-18] MEDS ORDERED: potassium Cl 40MEQ/1/2NS 520ml 520 ML IV PRN (08:45)
[2023-08-18 08:59] VITALS: RESP 15; O2SAT 98
[2023-08-18] MEDS: naltrexone 50mg tablet PO SCH (09:07)
[2023-08-18] MEDS: heparin, porcine 5000 units/ml vial SQ SCH (09:08)
[2023-08-18] MEDS: nicotine 14mg patch - 24hr TD SCH (09:08)
[2023-08-18] MEDS: docusate sod 100mg capsule PO SCH (09:08)
[2023-08-18] MEDS: CefTRIAXone/D5W-Rocephin 1gm 50 ML IV SCH (10:22)
[2023-08-18] MEDS: thiamine 100mg/ml 2ml inj. IV SCH ×2 (10:22→13:43)
[2023-08-18 10:28] VITALS: RESP 16
[2023-08-18] MEDS: folic acid 1mg/0.2ml inj IV SCH (11:56)
[2023-08-18] MEDS ORDERED: potassium Cl 20 mEq SR tablet PO STA (12:00)
[2023-08-18] MEDS ORDERED: NALT50TA PO (15:19)
[2023-08-18] MEDS ORDERED: LORA-269 PO (15:34)
[2023-08-18] MEDS ORDERED: LORazepam 2 mg/ml vial IV PRN (16:45)
[2023-08-18] MEDS ORDERED: LORazepam 1 MG tablet PO PRN (16:45)
[2023-08-20] MEDS ORDERED: LORazepam 2 mg/ml vial IV PRN (16:45)
[2023-08-20] MEDS ORDERED: LORazepam 1 MG tablet PO PRN (16:45)
[2023-08-21] MEDS ORDERED: thiamine 100mg tablet PO SCH (08:00)
[2023-08-21] MEDS ORDERED: folic acid 1mg tablet PO SCH (08:00)
== END 2023-08-18 16:30 | disposition home or self-care (01) | DRG 282 ==
LOC: ER 13:14 → ED HOLD 16:51 → EDBEDREQ 22:29 → ORTHO 4S 23:01
PROVIDERS: ADMIT Family Medicine; ATTEND Family Medicine
DX: K85.20 Alcohol induced acute pancreatitis without necrosis or infection (principal); F10.231 Alcohol dependence with withdrawal delirium; D72.819 Decreased white blood cell count, unspecified; D75.89 Other specified diseases of blood and blood-forming organs; N39.0 Urinary tract infection, site not specified; Z88.5 Allergy status to narcotic agent; Z79.899 Other long term (current) drug therapy
CPT/HCPCS: 36415; 80053; 80061; 80305; 80320; 81001; 81025; 82607; 83036; 83690; 83735; 84100; 84132; 85007; 85025; 85610; 87081; 99285; G0378; J0696; J1644; J2060; J2405; J3411; J3480; J3490; J7030; J7042

== ENCOUNTER 2023-09-19 10:34 | Emergency (ER) | payer MEDICAID ==
[~2023-09-19] VITALS: Ht 175.3 cm; Wt 57.0 kg
[~2023-09-19 10:34] MED LIST changes: -CEPH250T PO
[2023-09-19 14:26] VITALS: BP 105/79; PULSE 92; RESP 16; TEMP 97.9; O2SAT 97
[2023-09-19 15:40] LABS: URINE HCG NEGATIVE (NEG)
== END 2023-09-19 15:29 | disposition home or self-care (01) ==
LOC: ER 10:35
DX: R10.10 Upper abdominal pain, unspecified (principal); R11.2 Nausea with vomiting, unspecified; F17.210 Nicotine dependence, cigarettes, uncomplicated; F10.90 Alcohol use, unspecified, uncomplicated
CPT/HCPCS: 81025; 99283

== ENCOUNTER 2023-12-15 12:41 | Outpatient (CLI) | payer MEDICAID | END 2023-12-15 23:59 | disposition home or self-care (01) | LOC: RAD 12:41 | PROVIDERS: ATTEND Physician Assistant | DX: N83.292 Other ovarian cyst, left side (principal); N83.291 Other ovarian cyst, right side | CPT/HCPCS: 76830; 76856; 93976 ==

== ENCOUNTER 2023-12-26 18:17 | Emergency (ER) | payer MEDICAID ==
[~2023-12-26] VITALS: Ht 172.7 cm; Wt 58.3 kg
[2023-12-26 19:13] VITALS: BP 125/69; PULSE 88; RESP 16; TEMP 98.8; O2SAT 99
[2023-12-26] MEDS: ibuprofen 200mg tablet PO ONE (19:56)
[2023-12-26] MEDS: ondansetron 4mg rapidly disintigrating tab PO ONE (19:56)
[2023-12-26 21:08] LABS: URINE HCG NEGATIVE (NEG)
[2023-12-26 21:32] LABS: URINE AMPHETAMINE SCREEN NEGATIVE (Neg); URINE BARBITUATE SCREEN NEGATIVE (Neg); URINE BENZODIAZEPINES SCREEN NEGATIVE (Neg); URINE CANNABINOID SCREEN NEGATIVE (Neg); URINE COCAINE SCREEN NEGATIVE (Neg); URINE METHADONE SCREEN NEGATIVE (Neg); URINE OPIATE SCREEN NEGATIVE (Neg); URINE PHENCYCLIDINE SCREEN NEGATIVE (Neg)
== END 2023-12-26 21:35 | disposition home or self-care (01) ==
LOC: ER 18:17
DX: S62.396A Other fracture of fifth metacarpal bone, right hand, initial encounter for closed fracture (principal); Z72.89 Other problems related to lifestyle; Z79.891 Long term (current) use of opiate analgesic; Z88.8 Allergy status to other drugs, medicaments and biological substances; Z79.899 Other long term (current) drug therapy; Z79.2 Long term (current) use of antibiotics; X58.XXXA Exposure to other specified factors, initial encounter; Y93.89 Activity, other specified; Y92.89 Other specified places as the place of occurrence of the external cause; Y99.8 Other external cause status
CPT/HCPCS: 26605; 29125; 80305; 81025; 82948; 99283; 99284; A6446; A6449

== ENCOUNTER 2024-12-07 01:45 | Inpatient (IN) | payer MEDICAID ==
[~2024-12-07] VITALS: Ht 175.3 cm; Wt 65.8 kg
[~2024-12-07 01:45] MED LIST changes: -NALT50TA PO; +NALT50TA5 PO
[2024-12-07 02:10] LABS: LYMPHOCYTES # (AUTO) 0.6 X10'3 (1.1-4.8); MEAN CORPUSCULAR HGB CONC 33.5 g/dL (33.0-36.5); MONOCYTES # (AUTO) 0.2 X10'3 (0-0.9); NEUTROPHILS # (AUTO) 1.5 X10'3 (1.8-7.7)
[2024-12-07 02:12] LABS: BASOPHILS % (AUTO) 1.6 % (0-1); EOSINOPHILS % (AUTO) 0.4 % (0-6); HEMATOCRIT 39.8 % (35.0-45.0); HEMOGLOBIN 13.3 g/dl (12.0-16.0); LYMPHOCYTES % (AUTO) 27.1 % (21-51); MEAN CORPUSCULAR HEMOGLOBIN 34.5 PG (27.0-31.0); MEAN CORPUSCULAR VOLUME 102.9 FL (78-98); MEAN PLATELET VOLUME 7.2 FL (7.4-10.4); MONOCYTES % (AUTO) 8.3 % (2-12); NEUTROPHILS % (AUTO) 62.6 % (42-75); PLATELET COUNT 55 X10'3 (140-440); RED BLOOD COUNT 3.87 X10'6 (4.20-5.60); RED CELL DISTRIBUTION WIDTH 14.6 % (11.5-14.5); WHITE BLOOD COUNT 2.4 X10'3 (4.5-11.0)
[2024-12-07 02:21] LABS: URINE HCG NEGATIVE (NEG)
[2024-12-07 02:22] LABS: BILIRUBIN,URINE NEGATIVE (Neg); CLARITY,URINE CLEAR (Clear); COLOR,URINE YELLOW (Yellow); GLUCOSE, URINE NEGATIVE (Neg); KETONES,URINE NEGATIVE (Neg); LEUKOCYTE ESTERASE ,URINE NEGATIVE (Neg); NITRITES, URINE NEGATIVE (Neg); OCCULT BLOOD,URINE TRACE-INTACT (Neg); PROTEIN,URINE NEGATIVE (Neg); UROBILINOGEN,URINE 0.2 E.U/dL (0.2-1.0)
[2024-12-07 02:24] LABS: UA COLLECTION TYPE CLN CATCH MIDSTREAM
[2024-12-07 02:27] LABS: TOTAL CELLS COUNTED 100
[2024-12-07 02:29] LABS: PLATELET ESTIMATE DECREASED
[2024-12-07 02:30] LABS: ALANINE AMINOTRANSFERASE 182 U/L (12-78); ALBUMIN 4.2 G/DL (3.4-5.0); ALBUMIN/GLOBULIN RATIO 1.2 (1.1-1.5); ALKALINE PHOSPHATASE 138 IU/L (46-116); ANION GAP 10 (8-16); ASPARTATE AMINO TRANSFERASE 457 U/L (10-37); BILIRUBIN,TOTAL 0.6 MG/DL (0.1-1.0); BLOOD UREA NITROGEN 2 MG/DL (7-18); BUN/CREATININE RATIO 2.7 (10.0-20.0); CALCIUM 8.4 MG/DL (8.5-10.1); CHLORIDE 101 MMOL/L (99-107); CREATININE 0.73 MG/DL (0.40-0.90); GLUCOSE 104 MG/DL (70-104); POTASSIUM 3.4 MMOL/L (3.5-5.1); SODIUM 141 MMOL/L (135-145); TOTAL CARBON DIOXIDE 29.9 MMOL/L (24-32); TOTAL PROTEIN 7.7 G/DL (6.4-8.2); eCRCL 103 ML/MIN; eGFR 87 ML/MIN
[2024-12-07 02:31] LABS: BACTERIA,URINE FEW /HPF (Neg); RBC,URINE 0-2 /HPF (0-2); SQUAMOUS EPITHELIAL CELL,UR MANY /LPF (FEW); WBC,URINE 0-4 /HPF (0-4)
[2024-12-07 02:32] LABS: LIPASE > 375 U/L (16-77)
[2024-12-07] MEDS: normal saline 1000ML IV soln IVB ONE (02:51)
[2024-12-07 03:13] LABS: ETHANOL 435 MG/DL (<10)
[2024-12-07] MEDS ORDERED: potassium Cl 40MEQ/1/2NS 520ml 520 ML IV PRN (03:20)
[2024-12-07] MEDS ORDERED: HYDROmorphone inj. 0.5 MG/0.5 ML DISP.SYRIN IV PRN (03:20)
[2024-12-07] MEDS ORDERED: morphine 2 MG/ML inj. syringe IV PRN ×2 (03:20)
[2024-12-07] MEDS ORDERED: HYDROcodone/acetaminophen 10/325mg tab PO PRN (03:20)
[2024-12-07] MEDS ORDERED: magnesium sulf-water 4G/100mL 100 ML IV PRN (03:20)
[2024-12-07] MEDS ORDERED: mag hydrox/Alum hydrox/simeth 30ml oral suspension PO PRN (03:20)
[2024-12-07] MEDS ORDERED: bisacodyl 10mg suppository rectal RC PRN (03:20)
[2024-12-07] MEDS ORDERED: metoclopramide 5 mg/ml inj IV PRN (03:20)
[2024-12-07] MEDS ORDERED: ondansetron 4mg rapidly disintigrating tab PO PRN (03:20)
[2024-12-07] MEDS ORDERED: magnesium sulf-water 2g/50mL 50 ML IV PRN (03:20)
[2024-12-07] MEDS ORDERED: magnesium hydroxide 30ml (MOM) UD suspension PO PRN (03:20)
[2024-12-07] MEDS ORDERED: potassium Cl 20 mEq SR tablet PO PRN (03:20)
[2024-12-07] MEDS ORDERED: CEFP200T13 PO (03:25)
[2024-12-07 03:43] LABS: APTT 28 SECONDS (22-32); INR 1.2 INR; PROTHROMBIN TIME 11.8 SECONDS (9.0-12.0)
[2024-12-07] MEDS ORDERED: LORazepam 2 mg/ml vial IV PRN (03:55)
[2024-12-07] MEDS ORDERED: haloperidol lactate 5mg/ml inj IM PRN (03:55)
[2024-12-07] MEDS ORDERED: ketorolac trometh 15mg/ml vial 15 MG/ML ML IM PRN (03:55)
[2024-12-07 03:58] LABS: PRO BRAIN NATRIURETIC PEPTIDE < 30 PG/ML (0-125)
[2024-12-07] MEDS: normal saline 1000ml 1,000 ML IV SCH (04:33)
[2024-12-07] MEDS: potassium Cl 20 mEq SR tablet PO PRN (06:26)
[2024-12-07 08:34] LABS: URINE AMPHETAMINE SCREEN NEGATIVE (Neg); URINE BARBITUATE SCREEN NEGATIVE (Neg); URINE BENZODIAZEPINES SCREEN NEGATIVE (Neg); URINE CANNABINOID SCREEN NEGATIVE (Neg); URINE COCAINE SCREEN NEGATIVE (Neg); URINE METHADONE SCREEN NEGATIVE (Neg); URINE OPIATE SCREEN NEGATIVE (Neg); URINE PHENCYCLIDINE SCREEN NEGATIVE (Neg)
[2024-12-07 09:17] LABS: MAGNESIUM 1.7 MG/DL (1.5-2.4); POTASSIUM 3.5 MMOL/L (3.5-5.1)
[2024-12-07 10:20] VITALS: BP 105/70; PULSE 79; RESP 19; TEMP 97.4; O2SAT 97
[2024-12-07] MEDS: folic acid 1mg/0.2ml inj IV SCH (10:30)
[2024-12-07] MEDS: enoxaparin 40mg/0.4ml syringe SUBCUT SCH (11:00)
[2024-12-07] MEDS: multivitamins, therapeutics tablet PO SCH (11:00)
[2024-12-07] MEDS: thiamine 100mg/ml 2ml inj. IV SCH (11:00)
[2024-12-07] MEDS: docusate sod 100mg capsule PO SCH (11:00)
[2024-12-07 14:30] VITALS: BP 97/65; PULSE 74; RESP 16; TEMP 97.7; O2SAT 93
[2024-12-07] MEDS: K and/or MAG REPLACEMENT MC SCH (14:34)
[2024-12-07 18:00] VITALS: BP 101/67; PULSE 82; RESP 16; TEMP 96.6; O2SAT 98
[2024-12-07 20:00] VITALS: RESP 16
[2024-12-07 22:00] VITALS: BP 99/63; PULSE 65; RESP 20; TEMP 97.3; O2SAT 93
[2024-12-07] MEDS: diazepam inj 5 MG/ML inj. IV ONE (23:32)
[2024-12-08] VITALS (7 sets, daily range): BP systolic 111–143; BP diastolic 81–90; PULSE 81–98; RESP 14–18; TEMP 97.3–98.8; O2SAT 93–99
[2024-12-08] MEDS: haloperidol 5mg tablet PO PRN (00:42)
[2024-12-08 04:38] LABS: HEMOGLOBIN 12.1 g/dl (12.0-16.0); LYMPHOCYTES # (AUTO) 0.3 X10'3 (1.1-4.8); MEAN CORPUSCULAR HGB CONC 33.3 g/dL (33.0-36.5); MONOCYTES # (AUTO) 0.1 X10'3 (0-0.9); NEUTROPHILS # (AUTO) 0.8 X10'3 (1.8-7.7); WHITE BLOOD COUNT 1.3 X10'3 (4.5-11.0)
[2024-12-08 04:40] LABS: HEMATOCRIT 36.2 % (35.0-45.0); LYMPHOCYTES % (AUTO) 23.4 % (21-51); MEAN CORPUSCULAR HEMOGLOBIN 34.8 PG (27.0-31.0); MEAN CORPUSCULAR VOLUME 104.3 FL (78-98); MEAN PLATELET VOLUME 7.5 FL (7.4-10.4); MONOCYTES % (AUTO) 11.6 % (2-12); RED BLOOD COUNT 3.47 X10'6 (4.20-5.60); RED CELL DISTRIBUTION WIDTH 14.9 % (11.5-14.5)
[2024-12-08 04:54] LABS: PLATELET COUNT 40 X10'3 (140-440)
[2024-12-08 04:57] LABS: ALANINE AMINOTRANSFERASE 150 U/L (12-78); ALBUMIN 3.7 G/DL (3.4-5.0); ALBUMIN/GLOBULIN RATIO 1.2 (1.1-1.5); ALKALINE PHOSPHATASE 115 IU/L (46-116); ANION GAP 14 (8-16); ASPARTATE AMINO TRANSFERASE 422 U/L (10-37); BILIRUBIN,TOTAL 0.5 MG/DL (0.1-1.0); BLOOD UREA NITROGEN 1 MG/DL (7-18); BUN/CREATININE RATIO 2.3 (10.0-20.0); CALCIUM 7.2 MG/DL (8.5-10.1); CHLORIDE 108 MMOL/L (99-107); CHOL/HDL RATIO 2.4 (0.00-4.99); CHOLESTEROL 259 MG/DL (0-200); CREATININE 0.43 MG/DL (0.40-0.90); GLUCOSE 80 MG/DL (70-104); HDL CHOLESTEROL 107 MG/DL (35-60); LDL CHOLESTEROL 109 MG/DL (50-100); MAGNESIUM 1.6 MG/DL (1.5-2.4); PHOSPHORUS 2.8 MG/DL (2.3-4.5); POTASSIUM 3.5 MMOL/L (3.5-5.1); SODIUM 146 MMOL/L (135-145); TOTAL CARBON DIOXIDE 23.9 MMOL/L (24-32); TOTAL PROTEIN 6.7 G/DL (6.4-8.2); TRIGLYCERIDES 29 MG/DL (20-135); eCRCL 175 ML/MIN; eGFR > 90 ML/MIN
[2024-12-08 05:07] LABS: TOTAL CELLS COUNTED 100
[2024-12-08 05:08] LABS: PLATELET ESTIMATE DECREASED
[2024-12-08 05:10] LABS: LIPASE > 375 U/L (16-77)
[2024-12-08] MEDS: ondansetron/PF 4mg/2ml inj IV PRN (05:38)
[2024-12-08] MEDS: HYDROcodone/acetaminophen 5mg/325mg tablet PO PRN (06:11)
[2024-12-08] MEDS: diazepam inj 5 MG/ML inj. IV PRN ×2 (08:56→12:40)
[2024-12-08] MEDS: ketorolac trometh 15mg/ml vial 15 MG/ML ML IV PRN (12:39)
[2024-12-08] MEDS: haloperidol 1mg tablet PO ONE (14:27)
[2024-12-08] MEDS: normal saline 1000ml 1,000 ML IV ONE ×2 (16:52→18:22)
[2024-12-08] MEDS: diazepam inj 5 MG/ML inj. IV ONE (17:20)
[2024-12-08] MEDS: LORazepam 1 MG tablet PO PRN (20:09)
[2024-12-08] MEDS: acetaminophen 325mg tablet PO PRN (23:14)
[2024-12-09] MEDS ORDERED: LORazepam 2 mg/ml vial IV PRN (03:55)
[2024-12-09 04:57] LABS: EOSINOPHILS % (AUTO) 0.5 % (0-6); LYMPHOCYTES # (AUTO) 0.6 X10'3 (1.1-4.8); MEAN CORPUSCULAR HEMOGLOBIN 34.5 PG (27.0-31.0); MONOCYTES # (AUTO) 0.2 X10'3 (0-0.9); NEUTROPHILS # (AUTO) 1.4 X10'3 (1.8-7.7); RED BLOOD COUNT 3.48 X10'6 (4.20-5.60); RED CELL DISTRIBUTION WIDTH 14.5 % (11.5-14.5); WHITE BLOOD COUNT 2.3 X10'3 (4.5-11.0)
[2024-12-09 05:00] LABS: BASOPHILS % (AUTO) 1.2 % (0-1); HEMATOCRIT 36.2 % (35.0-45.0); LYMPHOCYTES % (AUTO) 25.1 % (21-51); MEAN CORPUSCULAR HGB CONC 33.1 g/dL (33.0-36.5); MEAN CORPUSCULAR VOLUME 104.1 FL (78-98); MEAN PLATELET VOLUME 7.9 FL (7.4-10.4); MONOCYTES % (AUTO) 10.2 % (2-12)
[2024-12-09 05:05] LABS: PLATELET COUNT 41 X10'3 (140-440)
[2024-12-09 05:15] LABS: TOTAL CELLS COUNTED 100
[2024-12-09 05:18] LABS: ALANINE AMINOTRANSFERASE 135 U/L (12-78); ALBUMIN 3.6 G/DL (3.4-5.0); ALBUMIN/GLOBULIN RATIO 1.1 (1.1-1.5); ALKALINE PHOSPHATASE 108 IU/L (46-116); ANION GAP 14 (8-16); ASPARTATE AMINO TRANSFERASE 348 U/L (10-37); BILIRUBIN,TOTAL 1.1 MG/DL (0.1-1.0); BLOOD UREA NITROGEN 1 MG/DL (7-18); CALCIUM 6.9 MG/DL (8.5-10.1); CHLORIDE 101 MMOL/L (99-107); CREATININE 0.49 MG/DL (0.40-0.90); GLUCOSE 76 MG/DL (70-104); MAGNESIUM 1.2 MG/DL (1.5-2.4); PHOSPHORUS 2.4 MG/DL (2.3-4.5); POTASSIUM 3.5 MMOL/L (3.5-5.1); SODIUM 140 MMOL/L (135-145); TOTAL CARBON DIOXIDE 25.2 MMOL/L (24-32); TOTAL PROTEIN 6.8 G/DL (6.4-8.2); eCRCL 154 ML/MIN; eGFR > 90 ML/MIN
[2024-12-09 05:20] LABS: LIPASE > 375 U/L (16-77)
[2024-12-09 06:00] VITALS: BP 126/86; PULSE 95; RESP 16; TEMP 98.4; O2SAT 98
[2024-12-09] MEDS ORDERED: haloperidol lactate 5mg/ml inj IM PRN (07:25)
[2024-12-09 08:00] VITALS: RESP 18; O2SAT 99
[2024-12-09] MEDS: LORazepam 1 MG tablet PO PRN (09:23)
[2024-12-09] MEDS: magnesium Cl slow-release 64mg tablet PO PRN (09:43)
[2024-12-09 10:00] VITALS: BP 110/84; PULSE 90; RESP 20; TEMP 98; O2SAT 98
[2024-12-09] MEDS ORDERED: FOLI0.4T6 PO (12:52)
[2024-12-09] MEDS ORDERED: ONDA-243 PO (12:52)
[2024-12-09] MEDS ORDERED: THIA50TA10 PO (12:52)
[2024-12-09] MEDS ORDERED: CHLO10CA6 PO (13:04)
[2024-12-11] MEDS ORDERED: LORazepam 1 MG tablet PO PRN (03:55)
[2024-12-11] MEDS ORDERED: LORazepam 2 mg/ml vial IV PRN (03:55)
== END 2024-12-09 14:50 | disposition home or self-care (01) | DRG 282 ==
LOC: ER 01:46 → ED HOLD 03:23 → SUR 3N 14:03
PROVIDERS: ADMIT Internal Medicine Critical Care Medicine; ATTEND Family Medicine
DX: K85.20 Alcohol induced acute pancreatitis without necrosis or infection (principal); D69.6 Thrombocytopenia, unspecified; R56.9 Unspecified convulsions; F10.229 Alcohol dependence with intoxication, unspecified; F41.9 Anxiety disorder, unspecified; R74.01 Elevation of levels of liver transaminase levels; Z85.3 Personal history of malignant neoplasm of breast; Z88.5 Allergy status to narcotic agent
CPT/HCPCS: 36415; 70450; 74176; 80053; 80061; 80305; 80320; 81001; 81025; 82948; 83605; 83690; 83735; 83880; 84100; 84132; 85007; 85025; 85610; 85730; 93005; 96360; 99285; G0378; J1885; J2405; J3360; J3411; J7030

== ENCOUNTER 2025-03-18 10:24 | Emergency (ER) | payer MEDICAID ==
[~2025-03-18] VITALS: Ht 175.3 cm; Wt 54.0 kg
[~2025-03-18 10:24] MED LIST changes: +CHLO10CA6 PO; -FOLI1TAB27 PO; -LORA-269 PO; -MULT-25 PO; -NALT50TA5 PO; -NICO-631 TD; +ONDA-243 PO; -THIA100T66 PO; +THIA50TA10 PO
[2025-03-18 10:32] VITALS: RESP 18
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
== END 2025-03-18 12:08 ==
LOC: ER 10:25
DX: Z04.1 Encounter for examination and observation following transport accident (principal); F10.90 Alcohol use, unspecified, uncomplicated; Z88.5 Allergy status to narcotic agent; Z79.899 Other long term (current) drug therapy; Y90.9 Presence of alcohol in blood, level not specified
CPT/HCPCS: 99283